=== PATIENT | female | born 1955 | race Caucasian/White ===

== ENCOUNTER 2021-10-30 11:20 | Emergency (ER) | payer MEDICAID, SELFPAY ==
[2021-10-30 11:29] VITALS: BP 158/100; PULSE 72; RESP 16; TEMP 36.3; O2SAT 97
--- NOTE | 2021-10-30 12:31 | ED.GENADUL_ITS ---
Discharge Plan Disposition Patient Disposition: HOME Condition: Improving Discharge Details Clinical Impression: Muscle strain, Acute hip pain Primary Care Provider: None,None ED Provider: Yumiko Sheth Home Meds and New Rx's Prescriptions: New methocarbamol 500 mg tablet 1,000 mg PO TID PRN (Reason: muscle spasm) 4 Days Qty: 24 0RF Continued lisinopril 20 mg Tablet 20 mg PO DAILY allopurinol 100 mg Tablet 100 mg PO DAILY levothyroxine 200 mcg Tablet 235 mcg PO DAILY Discharge Instructions Instructions: Muscle Strain (ED), Leg Pain (ED) Additional Instructions: Your x-rays are reassuring here today. No evidence of fracture or dislocation. As discussed, I am concerned about significant muscular strain. Please encourage hydration. You may use Tylenol and/or ibuprofen as needed for discomfort. You may use the methocarbamol as prescribed for muscle spasm. Please try to short distances frequently to help reduce any muscle spasm. Gentle stretching. May try topical options such as Lidoderm patches. If you develop fever/chills, increased pain, radiation of pain, weakness or other new/worsening symptoms to seek care urgently once again. Otherwise, please follow-up with primary care in the next 1 to 2 weeks for reevaluation Discharge Data Discharge Date/Time-TO BE ENTERED AT DEPARTURE: 10/30/21 14:05 Medical Decision Making Patient is a pleasant 66 year old female presenting today with c/c of left hip pain. Statets tthat a few hours ago, around 0500, she slipped on water in the kitchen and fell with her left leg going laterally like a split. Since then has been having signficant discomfort nearly circumfrentially around the upperthigh/hip/groin. Denies other injury. Did not strike her head, no LOC, LOYD. Denies incontinetnce. No sensory change/deficit. No previous injury. Pain indicated to be maximal near tot he groin, over lateral hip and posterior aspect. States that initially she was able to get up and to chair unassisted and without weakness. However, after sitting for period of time, she states pain increased and was having difficulty getting out of the chair or up to get to car. Took NSAID prior to arrival. On exam, patient appears uncomfortable but nontoxic. VS signficantt for hypertension but stable. Abdomen bening, no midline T/L spine tenderness. Neurovascularly intact. No objective evidence of trauma, no bruising or defect. No leg length discrepincy. She has no pain inferior to midthigh. 2+ distatl pulses, strength intact. Limited hip ROM secondary to a pain, primarily at the groin and lateral hip over greater trochanter. She feels tight but no evidence of signficant muscular defect or avulsion. Histoy and exam most consistent with muscular strain with subsequent spasm, also considered potenttial fracture, particularly at hte trochanter. She has no evidence of neurovascular compromise. Will give APAP, lidoderm patch and methocarbamol. Will obtain XR. FINDINGS: Bones/joints: No acute fracture or dislocation. bony lucencies seen along the acetabulum and left femoral head suspected degenerative in nature. There is no convincing evidence of an acute fracture or dislocation. Soft tissues: Unremarkable. IMPRESSION: Suspected degenerative changes of the left hip without acute bony findings. Discussed with patient. While she has some mild discomfort still, sh eis feeling signficantly improved. Patient able to ambulate well without antalgic gait about the room, unassisted. She feels that pain is controlled enough for d/c to home. Encouraged gentle stretching, ambulation. Discussed OTC and home remedies to help with discomfort. Encouraged hydration. Will continue with the methocarbaol as this worked quite well, discussed risks with the medication. Return precautions discussed. She plans to return home ttomorrow and I advised she f/u with PCP in the next 1-2 wks for reevaluaiton. All of her quesitons and concerns were addressed, she is in agreement with this plan. [facility] General Date/Time Provider Initiated Documentation: 10/30/21 12:31 . Limitations to Documentation: no limitations . Information obtained by: patient and RN notes reviewed . History of Present Illness 66 year old F presents to the emergency department with the chief complaint of left sided hip/groin pain, described as severe, with intensity rated at 10. Quality is described as sharp, and is localized to the left and lower extremity. Patient reports no radiation. Patient started experiencing this hour(s) and it has been constant. Immobilization improves symptom(s), Movement worsens symptoms (patient unable to ambulate on LLE secondary to pain) . Patient notes no other symptoms.. Patient did receive the following treatments prior to arrival, NSAID Related Data Home Medications Medication Instructions Recorded Confirmed allopurinol 100 mg tablet 100 mg PO DAILY 10/30/21 10/30/21 levothyroxine 200 mcg tablet 235 mcg PO DAILY 10/30/21 10/30/21 lisinopril 20 mg tablet 20 mg PO DAILY 10/30/21 10/30/21 methocarbamol 500 mg tablet 1,000 mg PO TID PRN muscle spasm 4 10/30/21 days #24 tabs Previous Rx's Medication Instructions Recorded methocarbamol 500 mg tablet 1,000 mg PO TID PRN muscle spasm 4 10/30/21 days #24 tabs Allergies Allergy/AdvReac Type Severity Reaction Status Date / Time codeine Allergy Unverified 10/30/21 11:35 General Stated Complaint: Orthopedic BEATRICE: 3 Review of Systems Constitutional Constitutional: Reports as per HPI, Denies chills, Denies fever(s) and Denies headache(s) ENT Ears, Nose, Mouth, and Throat: Denies headache(s) Cardiovascular Cardiovascular: Reports as per HPI Respiratory Respiratory: Reports as per HPI and Denies cough Musculoskeletal Musculoskeletal: Reports as per HPI and Denies tingling Integumentary/Breasts Skin/Breast: Reports as per HPI, Denies rash and Denies wounds Neurologic Neurologic: Reports as per HPI, Denies headache(s), Denies tingling and Denies paresthesias PFSH All Active Problems (Updated 10/30/21 @ 13:52 by YAHAIRA Marrero) Muscle strain (Acute) Acute hip pain (Acute) Social History Smoking/Tobacco Use Status: Former Tobacco Use Smoking risk assessment performed?: Yes Substance use type: does not use Do you feel safe at home: Yes Exam Const General: cooperative, healthy appearing, uncomfortable, no acute distress, well developed and well groomed Nutritional Appearance: average body habitus and well nourished Orientation: alert and awake Resp Effort & Inspection: normal respiratory effort, able to speak in complete sentences and no respiratory distress Cardio Rate: regular rate Rhythm: regular rhythm GI Inspection: normal to inspection Palpation: soft and nontender Back/Spine/Pelvis Back: no CVA tenderness Thoracic/Lumbar Spine: thoracic and lumbar spine normal to inspection, thoraco- lumbar ROM normal, No pain with thoraco-lumbar ROM, No paraspinal tenderness, No thoraco-lumbar spasm, No thoracic spinal tenderness and No lumbar spinal tenderness Pelvis: no pain with anterior-posterior compression and no pain with lateral compression Skin General skin exam: no rashes or lesions noted Lesions: no lesions Rashes: no rashes Trauma: no lacerations or abrasions Neuro General: patient alert and patient awake Cognition: normal cognition Speech: speech normal Gait: gait abnormal (patient reports that she has not been able to ambulate, one assist to bed) Motor: muscle tone normal throughout Sensory Exam: no sensory deficits noted Extrem General: capillary refill normal, no joint enlargement, no clubbing, cyanosis or edema, no pedal edema and no calf tenderness Left lower extremity: normal to inspection (no objective evidence of trauma), normal capillary refill, no joint enlargement, hip/thigh Details: normal to inspection and tenderness Location: of the hip Location: laterally, posteriorly (under gluteal fold), anteromedially (groin) and over the great trochanter and other (no ecchymosis, or muscular deformity to suggest rupture or avulsion); no abrasions, no ecchymosis, no crepitus, no deformity and no unusual warmth, knee Details: normal to inspection; no tenderness and foot Details: normal capillary refill and vascular exam Details: dorsalis pedis pulse present, posterior tibial pulse present and normal capillary refill; abnormal ROM (limited hip ROM secondary to pain) and no edema Psych Appearance: grossly normal and well kempt Mental Status: mental status grossly normal Speech and Movement: speech and movement normal Course Vital Signs Vital signs: Vital Signs Temperature 36.3 C L 10/30/21 11:29 Pulse 72 10/30/21 11:29 Respiratory Rate 16 10/30/21 11:29 Blood Pressure 158/100 H 10/30/21 11:29 Pulse Oximetry 97 10/30/21 11:29 Temperature 36.3 C L 10/30/21 11:29 Temperature Source Oral 10/30/21 11:29 Pulse 72 10/30/21 11:29 Respiratory Rate 16 10/30/21 11:29 Respiratory Effort 10/30/21 11:29 Blood Pressure 158/100 H 10/30/21 11:29 Blood Pressure Position Sitting 10/30/21 11:29 Pulse Oximetry 97 10/30/21 11:29 Oxygen Delivery Method Room Air 10/30/21 11:29 Oxygen Flow Rate 0 10/30/21 11:29 Pain Level 10 10/30/21 11:29
--- NOTE | 2021-10-30 12:45 | DI.RAD_ITS ---
Exam(s) XR FEMUR LT EXAM: XR FEMUR LT CLINICAL HISTORY: fall, lateral pain. TECHNIQUE: 2D digital imaging was performed. COMPARISON: No exams were available for comparison FINDINGS: Two views No evidence of acute fracture or dislocation. There is no hip joint space narrowing. Small calcific density seen at the level the greater trochanter, seen on the lateral view. No significant osseous lesions. Bone density is age-appropriate. IMPRESSION: DATA REPOSITORY: RADIATION DOSE DELIVERED:
[2021-10-30] MEDS: Acetaminophen 325 MG TAB 650 MG PO (12:58)
[2021-10-30] MEDS: Methocarbamol 500 MG TAB 1000 MG PO (12:59)
[2021-10-30] MEDS: Lidocaine 5% Patch 1 PATCH TP (13:31)
--- NOTE | 2021-10-30 13:38 | DI.VRAD_ITS ---
PROCEDURE INFORMATION: Exam: XR Left Femur Exam date and time: 10/30/2021 1:22 PM Age: 65 years old Clinical indication: Thigh; Left; Patient HX: Fall, lateral femur/hip pain TECHNIQUE: Imaging protocol: Radiologic exam of the Left femur. Views: 2 views. COMPARISON: No relevant images were readily available for comparison purposes. FINDINGS: Bones/joints: No acute fracture or dislocation. bony lucencies seen along the acetabulum and left femoral head suspected degenerative in nature. There is no convincing evidence of an acute fracture or dislocation. Soft tissues: Unremarkable. IMPRESSION: Suspected degenerative changes of the left hip without acute bony findings. Dictated and Authenticated by: Stevie Jones MD. Ordering:ALOK Calderon MD
[2021-10-30 14:02] VITALS: BP 158/100; PULSE 72; RESP 16; TEMP 36.3; O2SAT 97
== END 2021-10-30 14:05 | disposition home or self-care (01) ==
PROVIDERS: Emergency Provider Physician Assistant
DX: S76.012A Strain of muscle, fascia and tendon of left hip, initial encounter (principal); Z87.891 Personal history of nicotine dependence; W01.0XXA Fall on same level from slipping, tripping and stumbling without subsequent striking against object, initial encounter; Y92.89 Other specified places as the place of occurrence of the external cause
CPT/HCPCS: 73552; 99283; 99284